=== PATIENT | male | born 1950 | race Caucasian/White ===

== ENCOUNTER 2024-04-22 02:18 | Emergency (ER) | payer BC, MEDICARE ==
[2024-04-22 02:56] LABS: Bilirubin Negative (Negative); Blood, Urine Large (Negative); Glucose, Urine (Dipstick) Negative (Negative); Ketone, Urine Negative (Negative); Leukocyte Small (Negative); Nitrite Positive (Negative); Protein, Urine (Dipstick) Negative (Neg-Trace); Specific Gravity, Urine 1.015 (1.005-1.030); Urobilinogen 0.2 mg/dL (Less than 2); pH, Urine 5.5 (5.0-9.0)
[2024-04-22 03:00] LABS: Bacteria/HPF 1+ HPF (None Seen); CAUTI Indications for Culture Dysuria,urgency,freq; Clarity Hazy (Clear); Squamous Epithelial 0-3 HPF (0-3)
[2024-04-22 03:01] LABS: Urine Culture Reflex No No
[2024-04-22] MEDS ORDERED: Nitrofurantoin Monohyd/M-Cryst 100 MG CAP ONE (03:04)
== END 2024-04-22 03:30 | disposition home or self-care (01) ==
LOC: MADERS 02:18
DX: N39.0 Urinary tract infection, site not specified (principal); I10 Essential (primary) hypertension
CPT/HCPCS: 51701; 81001

== ENCOUNTER 2024-07-04 20:47 | Emergency (ER) | payer MEDICARE ==
[2024-07-04] MEDS ORDERED: Bisacodyl 10 MG SUPP ONE (21:05)
== END 2024-07-04 21:13 | disposition home or self-care (01) ==
LOC: MADERS 20:47
DX: K59.00 Constipation, unspecified (principal); I10 Essential (primary) hypertension
CPT/HCPCS: 99283

== ENCOUNTER 2024-10-14 04:00 | Emergency (ER) | payer MEDICARE ==
[2024-10-14] MEDS ORDERED: Lorazepam 2 MG/ML VIAL ONE (04:36)
[2024-10-14] MEDS ORDERED: Ziprasidone 20 MG VIAL ONE (04:37)
[2024-10-14] MEDS ORDERED: Sterile Water 10 ML ONE (04:38)
[2024-10-14 04:41] LABS: #Basophils 0.1 thou/uL (0.0-0.2); #Eosinophils 0.1 thou/uL (0.0-0.7); #Lymphocytes 1.9 thou/uL (1.20-3.40); #Monocytes 0.5 thou/uL (0.11-0.59); #Neutrophils 3.7 thou/uL (1.40-6.50); %Basophils 1.1 % (0.0-1.0); %Eosinophils 1.9 % (0.0-10.0); %Lymphocytes 30.1 % (21.0-51.0); %Monocytes 7.9 % (0.0-10.0); Hematocrit 42.7 % (42.0-52.0); Hemoglobin 13.8 g/dL (14.0-18.0); Mean Corpuscular HGB CONC 32.2 g/dL (32.0-36.0); Mean Corpuscular Hemoglobin 29.8 pg (27.0-31.0); Mean Corpuscular Volume 92.4 fl (78.0-98.0); Mean Platelet Volume 7.8 fL (7.4-10.4); Platelet Count 184 10x3/uL (130-400); Red Blood Cell (RBC) Count 4.62 mill/uL (4.70-6.10); White Blood Cell (WBC) Count 6.2 10x3/uL (4.8-10.8)
[2024-10-14 04:49] LABS: Prothrombin Time 13.5 sec (12.0-14.7)
[2024-10-14 04:57] LABS: PTT 33.8 sec (22.9-36.1)
[2024-10-14 04:58] LABS: Acetaminophen Less than 10 mcg/mL (Less than 10); Alcohol Less than 10.0 mg/dL (Less than 10); Salicylate Less than 8.0 mg/dL (Less than 8.0)
[2024-10-14 05:00] LABS: ALT (SGPT) 18 U/L (8-55); AST (SGOT) 26 U/L (5-34); Alkaline Phosphatase 54 U/L (40-110); Anion Gap 15 mmol/L (10-20); BUN (Urea Nitrogen) 16 mg/dL (8.4-25.7); Bilirubin, Total 0.6 mg/dL (0.2-1.2); Calc. Creatinine Clearance 0 mL/min (70-130); Carbon Dioxide 22 mmol/L (23-31); Chloride 111 mmol/L (98-107); Estimated GFR 91; Globulin 2.7 g/dL (2.4-3.5); Glucose 109 mg/dL (83-110); Protein, Total 6.7 g/dL (5.8-8.1); Sodium 144 mmol/L (136-145); Troponin I Less than 0.010 ng/mL (< 0.028)
[2024-10-14 05:28] LABS: Bilirubin Negative (Negative); Blood, Urine Negative (Negative); Clarity Clear (Clear); Glucose, Urine (Dipstick) Negative (Negative); Ketone, Urine Negative (Negative); Leukocyte Negative (Negative); Nitrite Negative (Negative); Protein, Urine (Dipstick) Negative (Neg-Trace); Urobilinogen 0.2 mg/dL (Less than 2); pH, Urine 5.5 (5.0-9.0)
[2024-10-14 05:29] LABS: Bacteria/HPF Rare-Few HPF (None Seen); CAUTI Indications for Culture Alt mental st,lethar; RBC/HPF 0-3 HPF (0-3); Squamous Epithelial 0-3 HPF (0-3); Urine Culture Reflex No No; WBC/HPF 0-3 HPF (0-3)
[2024-10-14 05:34] LABS: Amphetamine Not Detected (NotDetected); Barbiturates Screen Not Detected (NotDetected); Benzodiazepine Screen Not Detected (NotDetected); Cocaine Metabolite Screen Not Detected (NotDetected); Methadone Not Detected (NotDetected); Methamphetamine Not Detected (NotDetected); Opiate Screen Not Detected (NotDetected); Oxycodone Screen Not Detected (NotDetected); Phencyclidine (PCP) Not Detected (NotDetected); THC/Cannabinoid Screen Not Detected (NotDetected); Tricyclic Screen Not Detected (NotDetected)
== END 2024-10-14 12:17 ==
LOC: MADERS 04:00
DX: R41.82 Altered mental status, unspecified (principal); F03.911 Unspecified dementia, unspecified severity, with agitation
CPT/HCPCS: 70450; 71045; 80053; 80306; 80307; 81001; 84484; 85025; 85610; 85730; 93005; J2060; J3486; 96372; 96374